=== PATIENT | male | born 1990 | race American Indian/Alaskan Native ===

== ENCOUNTER 2016-07-11 04:46 | Emergency (ER) | payer SELFPAY | END 2016-07-11 04:55 | disposition left against medical advice (07) | LOC: ED 04:46 | DX: F29 Unspecified psychosis not due to a substance or known physiological condition (principal); Z53.21 Procedure and treatment not carried out due to patient leaving prior to being seen by health care provider ==

== ENCOUNTER → 2021-02-14 | Emergency (ER) | payer BC | LOC: ED 17:24 | DX: M79.18 Myalgia, other site (principal); Z53.21 Procedure and treatment not carried out due to patient leaving prior to being seen by health care provider ==

== ENCOUNTER 2021-07-13 19:36 | Inpatient (IN) | payer BC ==
[2021-07-13] MEDS ORDERED: ASPIRIN 325 MG TAB PO ONE (19:52)
[2021-07-13] MEDS ORDERED: dilTIAZem 25 MG/5 ML INJ IV ONE (20:01)
[2021-07-13] MEDS ORDERED: SODIUM CHLORIDE 0.9% 1000 ML 1,000 ML IV ONE (20:01)
[2021-07-13] MEDS: dilTIAZem/D5W 100 MG/100 ML BAG IV SCH (20:23)
--- NOTE | 2021-07-13 20:36 | XRay Report ---
XR chest 1V ap INDICATION / CLINICAL INFORMATION: chest pain. COMPARISON: None available. FINDINGS: SUPPORT DEVICES: None. HEART /PULMONARY VASCULATURE: No significant abnormality. LUNGS / PLEURA: No acute pulmonary or pleural abnormality. No pneumothorax. ADDITIONAL FINDINGS: No significant additional findings. IMPRESSION: 1. No acute findings. Signer Name: Darci Tamayo MD Signed: 07/13/2021 8:31 PM Workstation Name: [id number]
[2021-07-13 20:42] LABS: Basophils % (Auto) 0.3 % (0.0-1.8); Eosinophils # (Auto) 0.1 K/mm3 (0.0-0.4); Eosinophils % (Auto) 0.9 % (0.0-4.3); Hematocrit 47.5 % (35.5-45.6); Hemoglobin 15.8 gm/dl (11.8-15.2); Lymphocytes # (Auto) 2.3 K/mm3 (1.2-5.4); Mean Corpuscular HGB Conc 33 % (32-34); Mean Corpuscular Volume 90 fl (84-94); Monocytes # (Auto) 0.7 K/mm3 (0.0-0.8); Monocytes % (Auto) 7.6 % (0.0-7.3); Platelet Count 230 K/mm3 (140-440); Red Blood Count 5.27 M/mm3 (3.65-5.03); Red Cell Distribution Width 13.7 % (13.2-15.2)
[2021-07-13 21:06] LABS: Alanine Aminotransferase 56 units/L (7-56); Albumin 5.3 g/dL (3.9-5); BUN/Creatinine Ratio 17; Blood Urea Nitrogen 17 mg/dL (9-20); Calcium 10.1 mg/dL (8.4-10.2); Hemolysis Index 11
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
[2021-07-13] MEDS ORDERED: MORPHINE 2 MG/1 ML INJ IV PRN (21:53)
[2021-07-13] MEDS ORDERED: MORPHINE 4 MG/1 ML INJ IV PRN (21:53)
[2021-07-13] MEDS ORDERED: ONDANSETRON 4 MG/2 ML INJ IV PRN (21:53)
[2021-07-13] MEDS ORDERED: ACETAMINOPHEN 325 MG TAB PO PRN (21:53)
[2021-07-13] MEDS ORDERED: MAGNESIUM HYDROXIDE (MOM) ORAL LIQD UDC PO PRN (21:53)
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
[2021-07-13] MEDS ORDERED: LORazepam 2 MG/ML VIAL IV PRN ×2 (22:09)
[2021-07-13] MEDS ORDERED: chlordiazePOXIDE 25 MG CAP PO PRN (22:09)
[2021-07-13 22:46] LABS: Bilirubin,Urine NEG (Negative); Blood,Urine SM (Negative); Color,Urine Straw (Yellow); Protein,Urine <15 mg/dL mg/dL (Negative); Urobilinogen,Urine < 2.0 mg/dL (<2.0)
[2021-07-13 22:53] LABS: Amphetamine Screen,Urine PRESUMPTIVE NEGATIVE; Benzodiazepines Screen,Urine PRESUMPTIVE NEGATIVE; Cannabinoid Screen,Urine PRESUMPTIVE NEGATIVE; Cocaine Screen,Urine PRESUMPTIVE NEGATIVE; Methadone Screen,Urine PRESUMPTIVE NEGATIVE; Opiate Screen,Urine PRESUMPTIVE NEGATIVE
[2021-07-13 23:11] LABS: INR 0.92 (0.87-1.13)
[2021-07-14] MEDS: dilTIAZem/D5W 100 MG/100 ML BAG IV SCH (02:27)
[2021-07-14 02:45] LABS: BUN/Creatinine Ratio 14; Blood Urea Nitrogen 13 mg/dL (9-20); Calcium 9.9 mg/dL (8.4-10.2); Hemolysis Index 16
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
[2021-07-14] MEDS: dilTIAZem 60 MG TAB PO SCH ×3 (09:47→20:24)
[2021-07-14] MEDS: FAMOTIDINE 20 MG TAB PO SCH (09:48)
--- NOTE | 2021-07-14 12:18 | Electrocardiograph Report ---
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
[2021-07-14] MEDS: APIXABAN 5 MG TAB PO SCH ×2 (12:24→21:24)
--- NOTE | 2021-07-14 12:32 | Progress Note ---
<FAYE RUIZ - Last Filed: 07/14/21 16:14> Assessment and Plan Assessment and plan: This is a 30-year-old AA male with known past medical history of asthma admitted for new onset Atrial Fibrilation with RVR Hospital Course to Date 07/14: Still in Afib, HR in the 90 to 100s. Off cardizem gtt overnight due to bradycardia. Cardiology is following. Patient is now on PO Cardizem and plan is to initiated PO Eliquis today. Thorough discussion with patient and his significant other at the bedside, diagnosis and plan of care was discussed. All questions and concerns were voiced at this time. If patient remains stable okay to transfer to Telemetry this afternoon. Assessment and Plan #New Onset Atrial Fibrillation with RVR - Presented c/o SOB, substernal chest discomfort and palpitations - Troponin negative X3 - EKG revealed Atrial Fribrilation with RVR, no significant ST changes noted - s/p Cardizem, held overnight due to bradycardia, HR dropped in the low 50s - Patient remains in Afib this am, HR 90 to 100s - Cardiology consulted, appreciated recommendations - Now on PO Cardizem, plan to initiated Eliquis today - 2D Echo pending - Continue blood pressure monitor per protocol - Maintain SBP less than 160 - CCM also following #Tobacco Dependence #History of Asthma - Current daily cigarette smoker, over a pack a day - Stable on RA, no s/s of respiratory distress noted - Chest x-ray shows no acute abnormality. - Continue inhalers as needed - Smoking Cessation education provided. Patient voiced understanding and agreed to the info provided - Denied any urges at this time, offer nicotine back patch as needed. - CCM also following #Alcohol Abuse - Heavy daily drinker - Patient is calm and cooperative, will continue to monitor for alcohol withdrawal symptoms. - Continue CIWA protocol - Cessation education and alcohol avoidance was also cemetery counselor. Patient voiced understanding and agreed to the info provided - Maintenance of sleep-wake cycle #GI/DVT Prophylaxis - PPI- Pepcid - PO Eliquis initiated - SCDs to bilateral lower extremities while in bed The high probability of a clinically significant, sudden or life threatening deterioration of the [multiple] system(s) required my full and direct attention, intervention and personal management. The aggregate critical care time was [60] minutes. This time is in addition to time spent performing reported procedures but includes the following: [x] Data Review and interpretation [x] Patient assessment and monitoring of vital signs [x] Documentation [x] Medication orders and management Disposition Plan: ICU Total Time Spent with Patient (Minutes): 60 History Interval history: Patient seen and examined at the bedside. Fully AAO, on RA, still c/o of chest palpitation on exertion but resolved once at rest. Cardizem gtt held overnight due to bradycardia, HR dropped in the low 50s. Patient is still in Afib this am, HR in the 90 to 100s. Hospitalist Physical - Constitutional Vitals: Temp Pulse Resp BP Pulse Ox 98 F 87 20 157/63 97 07/14/21 03:22 07/14/21 12:24 07/14/21 12:00 07/14/21 12:24 07/14/21 12:00 General appearance: Present: no acute distress, well-nourished, obese - EENT Eyes: Present: PERRL, EOM intact ENT: hearing intact, clear oral mucosa - Neck Neck: Present: normal ROM - Respiratory Respiratory effort: normal Respiratory: bilateral: CTA - Cardiovascular Rhythm: regular Heart Sounds: Present: S1 & S2 - Extremities Extremities: no ischemia, pulses intact, pulses symmetrical Extremity abnormal: edema - Peripheral Assessment Generalized Edema Type: Non-pitting Edema Degree: 1+ Capillary Refill: < 3 seconds Skin Temperature: Warm Peripheral Pulses: within normal limits - Abdominal General gastrointestinal: soft, non-distended, normal bowel sounds - Integumentary Integumentary: Present: clear, warm, dry - Psychiatric Psychiatric: appropriate mood/affect, cooperative - Neurologic Neurologic: CNII-XII intact, moves all extremities - Allied Health Allied health notes reviewed: nursing HEART Score - HEART Score EKG: Non-specific Age: < 45 Risk factors: No known risk factors Troponin: Troponin T < 0.010 ng/mL (0.00-0.029) 07/14/21 01:50 Troponin: < normal limit - Critical Actions Critical Actions: 0-3 pts:0.9-1.7%risk of adverse cardiac event.Candidate for discharge Results - Labs CBC & Chem 7: 07/14/21 13:06 07/14/21 13:06 Labs: Laboratory Last Values WBC 9.1 K/mm3 (4.5-11.0) 07/13/21 20:21 RBC 5.27 M/mm3 (3.65-5.03) H 07/13/21 20:21 Hgb 15.8 gm/dl (11.8-15.2) H 07/13/21 20:21 Hct 47.5 % (35.5-45.6) H 07/13/21 20:21 MCV 90 fl (84-94) 07/13/21 20:21 MCH 30 pg (28-32) 07/13/21 20:21 MCHC 33 % (32-34) 07/13/21 20:21 RDW 13.7 % (13.2-15.2) 07/13/21 20:21 Plt Count 230 K/mm3 (140-440) 07/13/21 20:21 Lymph % (Auto) 25.0 % (13.4-35.0) 07/13/21 20:21 [place] % (Auto) 7.6 % (0.0-7.3) H 07/13/21 20:21 Eos % (Auto) 0.9 % (0.0-4.3) 07/13/21 20:21 Baso % (Auto) 0.3 % (0.0-1.8) 07/13/21 20:21 Lymph # (Auto) 2.3 K/mm3 (1.2-5.4) 07/13/21 20:21 [place] # (Auto) 0.7 K/mm3 (0.0-0.8) 07/13/21 20:21 Eos # (Auto) 0.1 K/mm3 (0.0-0.4) 07/13/21 20:21 Baso # (Auto) 0.0 K/mm3 (0.0-0.1) 07/13/21 20:21 Seg Neutrophils % 66.2 % (40.0-70.0) 07/13/21 20:21 Seg Neutrophils # 6.0 K/mm3 (1.8-7.7) 07/13/21 20:21 PT 13.4 Sec. (12.2-14.9) 07/13/21 22:33 INR 0.92 (0.87-1.13) 07/13/21 22:33 Sodium 136 mmol/L (137-145) L 07/14/21 02:11 Potassium 3.8 mmol/L (3.6-5.0) 07/14/21 02:11 Chloride 96.2 mmol/L (98-107) L 07/14/21 02:11 Carbon Dioxide 24 mmol/L (22-30) 07/14/21 02:11 Anion Gap 20 mmol/L 07/14/21 02:11 BUN 13 mg/dL (9-20) 07/14/21 02:11 Creatinine 0.9 mg/dL (0.8-1.3) 07/14/21 02:11 Estimated GFR > 60 ml/min 07/14/21 02:11 BUN/Creatinine Ratio 14 % 07/14/21 02:11 Glucose 100 mg/dL (75-100) 07/14/21 02:11 Calcium 9.9 mg/dL (8.4-10.2) 07/14/21 02:11 Total Bilirubin 0.70 mg/dL (0.1-1.2) 07/13/21 20:15 AST 49 units/L (5-40) H 07/13/21 20:15 ALT 56 units/L (7-56) 07/13/21 20:15 Alkaline Phosphatase 75 units/L (35-129) 07/13/21 20:15 Troponin T < 0.010 ng/mL (0.00-0.029) 07/14/21 01:50 Total Protein 8.3 g/dL (6.3-8.2) H 07/13/21 20:15 Albumin 5.3 g/dL (3.9-5) H 07/13/21 20:15 Albumin/Globulin Ratio 1.8 % 07/13/21 20:15 Lipase 27 units/L (13-60) 07/13/21 20:15 TSH 2.860 mlU/mL (0.270-4.200) 07/13/21 21:19 Urine Color Straw (Yellow) 07/13/21 22:18 Urine Turbidity Clear (Clear) 07/13/21 22:18 Urine pH 7.0 (5.0-7.0) 07/13/21 22:18 Ur Specific [place] 1.008 (1.003-1.030) 07/13/21 22:18 Urine Protein <15 mg/dl mg/dL (Negative) 07/13/21 22:18 Urine Glucose (UA) Neg mg/dL (Negative) 07/13/21 22:18 Urine Ketones Neg mg/dL (Negative) 07/13/21 22:18 Urine Blood Sm (Negative) 07/13/21 22:18 Urine Nitrite Neg (Negative) 07/13/21 22:18 Urine Bilirubin Neg (Negative) 07/13/21 22:18 Urine Urobilinogen < 2.0 mg/dL (<2.0) 07/13/21 22:18 Ur Leukocyte Esterase Neg (Negative) 07/13/21 22:18 Urine WBC (Auto) 1.0 /HPF (0.0-6.0) 07/13/21 22:18 Urine RBC (Auto) 2.0 /HPF (0.0-6.0) 07/13/21 22:18 Urine Opiates Screen Presumptive negative 07/13/21 22:18 Urine Methadone Screen Presumptive negative 07/13/21 22:18 Ur Barbiturates Screen Presumptive negative 07/13/21 22:18 Ur Phencyclidine Scrn Presumptive negative 07/13/21 22:18 Ur Amphetamines Screen Presumptive negative 07/13/21 22:18 U Benzodiazepines Scrn Presumptive negative 07/13/21 22:18 Urine Cocaine Screen Presumptive negative 07/13/21 22:18 U Marijuana (THC) Screen Presumptive negative 07/13/21 22:18 Drugs of Abuse Note Disclamer 07/13/21 22:18 Active Medications - Current Medications Current Medications: Generic Name Dose Route Start Last Admin Trade Name Freq PRN Reason Stop Dose Admin Acetaminophen 650 mg 07/13/21 21:53 Acetaminophen 325 Mg Tab PO Q6H PRN Pain MILD(1-3)/Fever >100.5/MAYS Apixaban 5 mg 07/14/21 12:00 07/14/21 12:24 Apixaban 5 Mg Tab PO 5 mg Q12HR BLANCO Administration Protocol Chlordiazepoxide HCl 100 mg 07/13/21 22:09 Chlordiazepoxide 25 Mg Cap PO Q1H PRN IHSAN-Dhaval 16-25 Diltiazem HCl 60 mg 07/14/21 09:00 07/14/21 12:24 Diltiazem 60 Mg Tab PO 60 mg Q6HR BLANCO Administration Famotidine 20 mg 07/14/21 10:00 07/14/21 09:48 Famotidine 20 Mg Tab PO 20 mg QDAY BLANCO Administration Lorazepam 2 mg 07/13/21 22:09 Lorazepam 2 Mg/Ml Vial IV Q1H PRN CIWA-Ar 8-15 Lorazepam 4 mg 07/13/21 22:09 Lorazepam 2 Mg/Ml Vial IV Q15MIN PRN CIWA-Ar >25 Magnesium Hydroxide 30 ml 07/13/21 21:53 Magnesium Hydroxide (Mom) Oral Liqd Udc PO Q4H PRN Constipation Morphine Sulfate 2 mg 07/13/21 21:53 Morphine 2 Mg/1 Ml Inj IV Q4H PRN Chest Pain Ondansetron HCl 4 mg 07/13/21 21:53 Ondansetron 4 Mg/2 Ml Inj IV Q8H PRN Nausea And Vomiting Sodium Chloride 10 ml 07/13/21 22:00 07/14/21 09:48 Sodium Chloride 0.9% 10 Ml Flush Syringe IV 10 ml BID BLANCO Administration Sodium Chloride 10 ml 07/13/21 21:53 Sodium Chloride 0.9% 10 Ml Flush Syringe IV PRN PRN LINE FLUSH <MARJORIE PANIAGUA - Last Filed: 07/15/21 07:10> Assessment and Plan Assessment and plan: Advance care planning Current Visit: Yes Status: Acute Plan to address problem: Disease education data, care plan discussed, diagnoses discussed, prognosis discussed, patient is full code. Patient family knowledges understanding and agreement with care plan, +30 minutes. Hospitalist Physical - Constitutional Vitals: Temp Pulse Resp BP Pulse Ox 97.2 F L 86 18 120/60 97 07/15/21 06:31 07/15/21 06:31 07/15/21 06:31 07/15/21 06:31 07/15/21 06:31 HEART Score - HEART Score Troponin: Troponin T < 0.010 ng/mL (0.00-0.029) 07/14/21 01:50 Results - Labs CBC & Chem 7: 07/14/21 13:06 07/15/21 05:12 Labs: Laboratory Last Values WBC 9.0 K/mm3 (4.5-11.0) 07/14/21 13:06 RBC 5.32 M/mm3 (3.65-5.03) H 07/14/21 13:06 Hgb 16.0 gm/dl (11.8-15.2) H 07/14/21 13:06 Hct 47.5 % (35.5-45.6) H 07/14/21 13:06 MCV 89 fl (84-94) 07/14/21 13:06 MCH 30 pg (28-32) 07/14/21 13:06 MCHC 34 % (32-34) 07/14/21 13:06 RDW 13.8 % (13.2-15.2) 07/14/21 13:06 Plt Count 238 K/mm3 (140-440) 07/14/21 13:06 Lymph % (Auto) 25.0 % (13.4-35.0) 07/13/21 20:21 [place] % (Auto) 7.6 % (0.0-7.3) H 07/13/21 20:21 Eos % (Auto) 0.9 % (0.0-4.3) 07/13/21 20:21 Baso % (Auto) 0.3 % (0.0-1.8) 07/13/21 20:21 Lymph # (Auto) 2.3 K/mm3 (1.2-5.4) 07/13/21 20:21 [place] # (Auto) 0.7 K/mm3 (0.0-0.8) 07/13/21 20:21 Eos # (Auto) 0.1 K/mm3 (0.0-0.4) 07/13/21 20:21 Baso # (Auto) 0.0 K/mm3 (0.0-0.1) 07/13/21 20:21 Seg Neutrophils % 66.2 % (40.0-70.0) 07/13/21 20:21 Seg Neutrophils # 6.0 K/mm3 (1.8-7.7) 07/13/21 20:21 PT 13.9 Sec. (12.2-14.9) 07/14/21 13:06 INR 0.97 (0.87-1.13) 07/14/21 13:06 APTT 25.7 Sec. (24.2-36.6) 07/14/21 13:06 Sodium 137 mmol/L (137-145) 07/15/21 05:12 Potassium 4.3 mmol/L (3.6-5.0) 07/15/21 05:12 Chloride 101.6 mmol/L (98-107) 07/15/21 05:12 Carbon Dioxide 25 mmol/L (22-30) 07/15/21 05:12 Anion Gap 15 mmol/L 07/15/21 05:12 BUN 18 mg/dL (9-20) 07/15/21 05:12 Creatinine 1.1 mg/dL (0.8-1.3) 07/15/21 05:12 Estimated GFR > 60 ml/min 07/15/21 05:12 BUN/Creatinine Ratio 16 % 07/15/21 05:12 Glucose 108 mg/dL (75-100) H 07/15/21 05:12 Calcium 10.0 mg/dL (8.4-10.2) 07/15/21 05:12 Phosphorus 5.50 mg/dL (2.5-4.5) H 07/15/21 05:12 Magnesium 2.40 mg/dL (1.7-2.3) H 07/15/21 05:12 Total Bilirubin 0.70 mg/dL (0.1-1.2) 07/13/21 20:15 AST 49 units/L (5-40) H 07/13/21 20:15 ALT 56 units/L (7-56) 07/13/21 20:15 Alkaline Phosphatase 75 units/L (35-129) 07/13/21 20:15 Troponin T < 0.010 ng/mL (0.00-0.029) 07/14/21 01:50 Total Protein 8.3 g/dL (6.3-8.2) H 07/13/21 20:15 Albumin 5.3 g/dL (3.9-5) H 07/13/21 20:15 Albumin/Globulin Ratio 1.8 % 07/13/21 20:15 Lipase 27 units/L (13-60) 07/13/21 20:15 TSH 2.860 mlU/mL (0.270-4.200) 07/13/21 21:19 Urine Color Straw (Yellow) 07/13/21 22:18 Urine Turbidity Clear (Clear) 07/13/21 22:18 Urine pH 7.0 (5.0-7.0) 07/13/21 22:18 Ur Specific [place] 1.008 (1.003-1.030) 07/13/21 22:18 Urine Protein <15 mg/dl mg/dL (Negative) 07/13/21 22:18 Urine Glucose (UA) Neg mg/dL (Negative) 07/13/21 22:18 Urine Ketones Neg mg/dL (Negative) 07/13/21 22:18 Urine Blood Sm (Negative) 07/13/21 22:18 Urine Nitrite Neg (Negative) 07/13/21 22:18 Urine Bilirubin Neg (Negative) 07/13/21 22:18 Urine Urobilinogen < 2.0 mg/dL (<2.0) 07/13/21 22:18 Ur Leukocyte Esterase Neg (Negative) 07/13/21 22:18 Urine WBC (Auto) 1.0 /HPF (0.0-6.0) 07/13/21 22:18 Urine RBC (Auto) 2.0 /HPF (0.0-6.0) 07/13/21 22:18 Urine Opiates Screen Presumptive negative 07/13/21 22:18 Urine Methadone Screen Presumptive negative 07/13/21 22:18 Ur Barbiturates Screen Presumptive negative 07/13/21 22:18 Ur Phencyclidine Scrn Presumptive negative 07/13/21 22:18 Ur Amphetamines Screen Presumptive negative 07/13/21 22:18 U Benzodiazepines Scrn Presumptive negative 07/13/21 22:18 Urine Cocaine Screen Presumptive negative 07/13/21 22:18 U Marijuana (THC) Screen Presumptive negative 07/13/21 22:18 Drugs of Abuse Note Disclamer 07/13/21 22:18 Active Medications - Current Medications Current Medications: Generic Name Dose Route Start Last Admin Trade Name Freq PRN Reason Stop Dose Admin Acetaminophen 650 mg 07/13/21 21:53 Acetaminophen 325 Mg Tab PO Q6H PRN Pain MILD(1-3)/Fever >100.5/MAYS Apixaban 5 mg 07/14/21 12:00 07/14/21 21:24 Apixaban 5 Mg Tab PO 5 mg Q12HR BLANCO Administration Protocol Chlordiazepoxide HCl 100 mg 07/13/21 22:09 Chlordiazepoxide 25 Mg Cap PO Q1H PRN CIWA-Ar 16-25 Diltiazem HCl 60 mg 07/14/21 09:00 07/15/21 06:33 Diltiazem 60 Mg Tab PO 60 mg Q6HR BLANCO Administration Famotidine 20 mg 07/14/21 10:00 07/14/21 09:48 Famotidine 20 Mg Tab PO 20 mg QDAY BLANCO Administration Lorazepam 2 mg 07/13/21 22:09 Lorazepam 2 Mg/Ml Vial IV Q1H PRN CIWA-Ar 8-15 Lorazepam 4 mg 07/13/21 22:09 Lorazepam 2 Mg/Ml Vial IV Q15MIN PRN CIWA-Ar >25 Magnesium Hydroxide 30 ml 07/13/21 21:53 Magnesium Hydroxide (Mom) Oral Liqd Udc PO Q4H PRN Constipation Morphine Sulfate 2 mg 07/13/21 21:53 Morphine 2 Mg/1 Ml Inj IV Q4H PRN Chest Pain Ondansetron HCl 4 mg 07/13/21 21:53 Ondansetron 4 Mg/2 Ml Inj IV Q8H PRN Nausea And Vomiting Sodium Chloride 10 ml 07/13/21 22:00 07/14/21 21:25 Sodium Chloride 0.9% 10 Ml Flush Syringe IV 10 ml BID BLANCO Administration Sodium Chloride 10 ml 07/13/21 21:53 Sodium Chloride 0.9% 10 Ml Flush Syringe IV PRN PRN LINE FLUSH Nutrition/Malnutrition Assess - Dietary Evaluation Nutrition/Malnutrition Findings: Nutrition Notes Start: 07/14/21 12:44 Freq: Status: Active Protocol: Document 07/14/21 12:44 HALEY (Rec: 07/14/21 12:50 HALEY [id number]) Nutrition Notes Need for Assessment generated from: MD Order,Education Initial or Follow up Brief Note Other Pertinent Diagnosis Atrial Fibrilation w/RVR, Asthma, EtOH Abuse. Current Diet Cardiac Diet (since B 07/14). 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 Weight Status Obese Subjective/Other Information RD consult for nutrition education assessment. No reports available on Pt's PO intake of meals at the time , will assess at F/U. Pt is on Room Air, O2 saturation @ 100%, according to Physical Assessment History notes. Pt still in critical condition , not a candidate for Nutrition Education at the time, will assess feasibility on F/U. Percent of energy/protein needs met: Prescribed Cardiac Diet provides for energy/protein needs (2,230 Kcal/85 g) during LOS. Nutrition Intervention Follow-Up By: 07/21/21 Additional Comments Nutrition education will be provided on F/U, if feasible. Continue monitoring food tolerance, %PO intake of meals , and BM.
[2021-07-14 13:21] LABS: Hematocrit 47.5 % (35.5-45.6); Mean Corpuscular HGB Conc 34 % (32-34); Mean Corpuscular Volume 89 fl (84-94); Platelet Count 238 K/mm3 (140-440); Red Blood Count 5.32 M/mm3 (3.65-5.03); Red Cell Distribution Width 13.8 % (13.2-15.2)
[2021-07-14 13:32] LABS: INR 0.97 (0.87-1.13)
[2021-07-14 13:33] LABS: Partial Thromboplastin Time 25.7 Sec. (24.2-36.6)
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
[2021-07-15] MEDS: dilTIAZem 60 MG TAB PO SCH ×2 (00:19→06:33)
[2021-07-15 05:46] LABS: BUN/Creatinine Ratio 16; Blood Urea Nitrogen 18 mg/dL (9-20); Hemolysis Index 24
[2021-07-15 08:43] VITALS: BP 140/98
--- NOTE | 2021-07-15 09:25 | Progress Note ---
Subjective Date of service: 07/15/21 Objective Vital Signs - 12hr 07/14/21 07/14/21 07/15/21 21:26 22:07 00:14 Temperature 97.2 F L Pulse Rate 96 H 72 77 Pulse Rate [ From Monitor] Respiratory 18 18 Rate Blood Pressure 147/97 Blood Pressure 144/94 [Right] O2 Sat by Pulse 98 99 Oximetry 07/15/21 07/15/21 07/15/21 06:31 08:29 09:20 Temperature 97.2 F L 97.6 F Pulse Rate 86 77 Pulse Rate [ 78 From Monitor] Respiratory 18 18 Rate Blood Pressure 140/98 Blood Pressure 120/60 [Right] O2 Sat by Pulse 97 95 99 Oximetry Constitutional: no acute distress, other (resting in bed, appears anxious) ENT: oropharynx moist, other (large neck circumference) Neck: supple, no lymphadenopathy, no JVD Effort: normal Ascultation: Bilateral: clear, diminished breath sounds Cardiovascular: irregular rhythm, other (S1,S2) Gastrointestinal: normoactive bowel sounds, soft, non-tender Integumentary: normal Extremities: no cyanosis, no edema, pink and warm Neurologic: normal mental status, non-focal exam, pupils equal and round, motor strength normal and Psychiatric: mood appropriate, anxious CBC and BMP: 07/14/21 13:06 07/15/21 05:12 ABG, PT/INR, D-dimer: PT/INR, D-dimer PT 13.9 Sec. (12.2-14.9) 07/14/21 13:06 INR 0.97 (0.87-1.13) 07/14/21 13:06 Abnormal lab findings: Abnormal Labs 07/13/21 07/13/21 07/14/21 20:15 20:21 02:11 RBC 5.27 H Hgb 15.8 H Hct 47.5 H [place] % (Auto) 7.6 H Sodium 136 L Chloride 96.2 L Glucose Phosphorus Magnesium AST 49 H Total Protein 8.3 H Albumin 5.3 H 07/14/21 07/15/21 13:06 05:12 RBC 5.32 H Hgb 16.0 H Hct 47.5 H [place] % (Auto) Sodium Chloride Glucose 108 H Phosphorus 5.50 H Magnesium 2.40 H AST Total Protein Albumin
[2021-07-15] MEDS ORDERED: NICOTINE 7 MG/24 HR PATCH TD SCH (10:00)
[2021-07-15] MEDS: APIXABAN 5 MG TAB PO SCH (10:06)
[2021-07-15] MEDS: FAMOTIDINE 20 MG TAB PO SCH (10:06)
--- NOTE | 2021-07-15 10:51 | Discharge Summary ---
Providers - Providers Date of Admission: 07/13/21 21:53 Date of discharge: 07/14/21 Attending physician: KATHRYN TURNER MD 07/13/21 21:53 Consult to Dietitian/Nutrition [CONS] Routine Physician Instructions: Reason For Exam: Reason for Consult: Diet education Consult to Physician [CONS] Routine Comment: Consulting Provider: AMMY BILLINGSLEY Physician Instructions: Reason For Exam: AFIB WITH RVR 07/13/21 21:58 Consult to Physician [CONS] Routine Comment: Consulting Provider: DARRELL VALENTIN Physician Instructions: Reason For Exam: AFIB WITH RVR ON CARDIZEM DRIP Primary care physician: [employer] Hospitalization Condition: Fair Disposition: 30 STILL A PATIENT Exam - Constitutional Vitals: Temp Pulse Resp BP Pulse Ox 97.6 F 78 18 140/98 99 07/15/21 08:29 07/15/21 09:20 07/15/21 08:29 07/15/21 08:29 07/15/21 09:20 Plan Care Plan Goals: Please start taking all medications as they are prescribed. Make sure to schedule follow-up appointment with your primary care provider. Also make sure to follow-up with Cardiology for atrial fibrillation management. We recommend that you cut back and eventually quit smoking and alcohol use. If you experience any bleeding while taking the blood thinner, please let your primary care provider know. Follow up with: ARLEEN VILLEGAS MD [Primary Care Provider] - 3-5 Days Prescriptions: dilTIAZem HCl [Diltiazem 24Hr ER (Cd)] 240 mg PO QDAY 30 Days #30 tab Apixaban [Eliquis] 5 mg PO Q12HR 30 Days #60 tablet
--- NOTE | 2021-07-15 11:55 | Progress Note ---
Assessment and Plan Patient is a 30-year-old male with a past medical history of asthma who presented to the ED with a complaint of palpitations, shortness of breath, lightheadedness, and chest tightness which started day prior to admission A. fib with RVR Hypertension EtOH abuse Tobacco use Echo 07/13/2021-EF 50 to 55%. Left ventricular diastolic function is indeterminate. Right ventricular systolic function is normal. No pericardial effusion Plan: Patient converted to sinus rhythm 67 Stop Cardizem 60 p.o. every 6 hours and convert to Cardizem CD 240 mg p.o. daily Echo results noted above Continue Eliquis for anticoagulation Discussed importance of smoking cessation with patient who verbalized under standing and acknowledgment Discussed importance of anticoagulation with patient and risks and benefits of anticoagulation. Patient verbalized understanding and acknowledgment Cardiac status otherwise stable for discharge Patient should follow-up with Dr. Mccrary, [facility] special effects specialist, 08/20/2021 at 1:15 PM in our [place] location. Phone #[phone] Patient seen in conjunction with Dr. Mccrary who agrees with this plan of care - Patient Problems (1) Atrial fibrillation with RVR Current Visit: Yes Status: Acute (2) History of asthma Current Visit: Yes Status: Acute (3) Tobacco dependence Current Visit: Yes Status: Acute (4) Alcohol abuse Current Visit: Yes Status: Acute Subjective Date of service: 07/15/21 Principal diagnosis: A. fib with RVR Interval history: Patient transferred to telemetry floor. Patient resting in bed in no acute distress and reports feeling much better Patient converted to sinus rhythm. Currently sinus rate trending in the 60s to 70s Objective Vital Signs Temp Pulse Pulse Resp BP BP Pulse Ox 07/15/21 09:20 78 99 07/15/21 08:29 97.6 F 77 18 140/98 95 07/15/21 06:31 97.2 F L 86 18 120/60 97 07/15/21 00:14 97.2 F L 77 18 144/94 99 07/14/21 22:07 72 07/14/21 21:26 96 H 18 147/97 98 07/14/21 21:01 72 15 147/97 99 07/14/21 20:24 79 137/95 07/14/21 20:00 67 78 19 137/95 99 07/14/21 19:45 99.2 F 07/14/21 19:00 63 22 129/86 99 07/14/21 18:00 72 17 135/81 98 07/14/21 17:00 79 16 134/83 97 07/14/21 16:01 73 17 111/78 98 07/14/21 16:00 97.3 F L 07/14/21 15:59 70 70 19 97 07/14/21 15:01 91 H 11 L 127/83 99 07/14/21 14:00 103 H 21 148/84 100 07/14/21 13:00 88 18 148/84 100 07/14/21 12:24 87 157/63 07/14/21 12:19 106 H 106 H 17 98 07/14/21 12:00 97.8 F 129 H 20 168/100 97 - Physical Examination General: No Apparent Distress HEENT: Positive: PERRL, Normocephaly Neck: Positive: trachea midline Cardiac: Positive: Reg Rate and Rhythm Lungs: Positive: Normal Breath Sounds Neuro: Positive: Grossly Intact Abdomen: Positive: Soft, Active Bowel Sounds Skin: Negative: Rash, Suspicious Lesions, Ulceration Extremities: Present: upper extr. pulses. Absent: edema - Labs and Meds Coagulation 07/14/21 Range/Units 13:06 PT 13.9 (12.2-14.9) Sec. INR 0.97 (0.87-1.13) APTT 25.7 (24.2-36.6) Sec. CBC 07/14/21 Range/Units 13:06 WBC 9.0 (4.5-11.0) K/mm3 RBC 5.32 H (3.65-5.03) M/mm3 Hgb 16.0 H (11.8-15.2) gm/dl Hct 47.5 H (35.5-45.6) % Plt Count 238 (140-440) K/mm3 Comprehensive Metabolic Panel 07/14/21 07/15/21 Range/Units 13:06 05:12 Sodium 137 (137-145) mmol/L Potassium 4.3 (3.6-5.0) mmol/L Chloride 101.6 (98-107) mmol/L Carbon Dioxide 25 (22-30) mmol/L BUN 18 (9-20) mg/dL Creatinine 0.9 1.1 (0.8-1.3) mg/dL Glucose 108 H (75-100) mg/dL Calcium 10.0 (8.4-10.2) mg/dL - Imaging and Cardiology Echo: report reviewed - Telemetry EKG Rhythm: Sinus Rhythm - EKG Sinus rhythms and dysrhythmias: sinus rhythm
[2021-07-16] MEDS ORDERED: dilTIAZem CD 240 MG CAP PO SCH (10:00)
== END 2021-07-15 14:30 | disposition home or self-care (01) | DRG 310 ==
LOC: ED 19:36 → CC1 21:53 → 4A 07-14 21:41
PROVIDERS: ADMIT Internal Medicine Geriatric Medicine; ATTEND Student in an Organized Health Care Education/Training Program
DX: I48.91 Unspecified atrial fibrillation (principal); J45.909 Unspecified asthma, uncomplicated; I10 Essential (primary) hypertension; F10.10 Alcohol abuse, uncomplicated; F17.200 Nicotine dependence, unspecified, uncomplicated
CPT/HCPCS: 36415; 71045; 80048; 80053; 80307; 81001; 82565; 83690; 83735; 84100; 84443; 84484; 85025; 85027; 85610; 85730; 93005; 93306; G0378; J3490; C8929; J7030

== ENCOUNTER 2021-09-25 23:53 | Emergency (ER) | payer BC ==
[2021-09-26 00:01] VITALS: BP 154/83
--- NOTE | 2021-09-26 00:42 | XRay Report ---
XR chest routine 2V INDICATION / CLINICAL INFORMATION: CHEST PAIN. COMPARISON: 07/13/2021 FINDINGS: SUPPORT DEVICES: None. HEART /PULMONARY VASCULATURE: No significant abnormality. LUNGS / PLEURA: No significant pulmonary or pleural abnormality. No pneumothorax. ADDITIONAL FINDINGS: No significant additional findings. IMPRESSION: 1. No acute findings. Signer Name: Darci Tamayo MD Signed: 09/26/2021 12:37 AM Workstation Name: [id number]
[2021-09-26 01:04] LABS: Basophils # (Auto) 0.1 K/mm3 (0.0-0.1); Basophils % (Auto) 0.7 % (0.0-1.8); Eosinophils # (Auto) 0.1 K/mm3 (0.0-0.4); Eosinophils % (Auto) 1.3 % (0.0-4.3); Hematocrit 44.2 % (35.5-45.6); Hemoglobin 15.5 gm/dl (11.8-15.2); Lymphocytes # (Auto) 2.6 K/mm3 (1.2-5.4); Lymphocytes % (Auto) 26.1 % (13.4-35.0); Mean Corpuscular HGB Conc 35 % (32-34); Mean Corpuscular Volume 88 fl (84-94); Monocytes # (Auto) 0.7 K/mm3 (0.0-0.8); Monocytes % (Auto) 7.1 % (0.0-7.3); Platelet Count 293 K/mm3 (140-440); Red Blood Count 5.03 M/mm3 (3.65-5.03); Red Cell Distribution Width 13.2 % (13.2-15.2)
[2021-09-26 01:24] LABS: Albumin 4.7 g/dL (3.9-5); BUN/Creatinine Ratio 13; Blood Urea Nitrogen 15 mg/dL (9-20); Calcium 9.9 mg/dL (8.4-10.2); Hemolysis Index 19
[2021-09-26 01:44] LABS: Alanine Aminotransferase < 5 units/L (7-56)
--- NOTE | 2021-09-27 10:17 | Electrocardiograph Report ---
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
== END 2021-09-26 01:00 | disposition left against medical advice (07) ==
LOC: ED 23:53
DX: R06.02 Shortness of breath (principal); Z53.21 Procedure and treatment not carried out due to patient leaving prior to being seen by health care provider
CPT/HCPCS: 36415; 71046; 80053; 84484; 85025; 93005

== ENCOUNTER 2021-11-19 07:45 | Day surgery (SDC) | payer BC ==
--- NOTE | 2021-11-18 14:55 | Short Stay Summary ---
Short Stay Documentation Date of service: 11/18/21 Narrative H&P: Patient is a 32-year-old male with a past medical history of A. fib, hypertension, obesity, tobacco use, and suspected MOHIT who presents for cardiac cath due to recurrent chest pain despite normal echo and stress test. - History Past Medical History: atrial fib, hypertension Past Surgical History: No surgical history Social history: , smoking - Allergies and Medications Current Medications: Allergies No Known Allergies Allergy (Verified 07/13/21 19:52) Home Medications Medication Instructions Recorded Confirmed Last Taken Type Apixaban [Eliquis] 5 mg PO Q12HR 30 Days #60 tablet 07/15/21 Unknown Rx dilTIAZem HCl [Diltiazem 24Hr ER 240 mg PO QDAY 30 Days #30 tab 07/15/21 Unknown Rx (Cd)] - Physical exam General appearance: no acute distress Integumentary: no rash, no growths, no abnormal pigmentation HEENT: PERRLA Heart: Regular rate, Normal S1, Normal S2 Gastrointestinal: normal Extremities: no ischemia, pulses intact Neurological: Normal speech - Brief post op/procedure progress note Date of procedure: 11/19/21 Pre-op diagnosis: Chest pain Post-op diagnosis: other (Noncardiac chest pain) Anesthesia: local Estimated blood loss: minimal - Hospital course Hospital course: Patient presented for cardiac cath this a.m. Patient found to have nonsignificant disease. Patient tolerated procedure well with no complications. Patient to be discharged home and follow-up in the office as an outpatient - Disposition Condition at discharge: Good Disposition: 01 HOME / SELF CARE / HOMELESS - Discharge Diagnoses (1) Atrial fibrillation with RVR Status: Acute (2) History of asthma Status: Acute (3) Tobacco dependence Status: Acute Short Stay Discharge Plan Diet: low fat, low cholesterol, low salt Wound: keep clean and dry, per your surgeon's advice Follow up with: ARLEEN VILLEGAS MD [Primary Care Provider] - 7 Days HENRY BURCIAGA MD [Staff Physician] - 7 Days
[2021-11-19 08:40] LABS: Basophils % (Auto) 0.7 % (0.0-1.8); Eosinophils # (Auto) 0.1 K/mm3 (0.0-0.4); Hematocrit 44.4 % (35.5-45.6); Hemoglobin 15.1 gm/dl (11.8-15.2); Lymphocytes # (Auto) 2.3 K/mm3 (1.2-5.4); Lymphocytes % (Auto) 32.1 % (13.4-35.0); Mean Corpuscular HGB Conc 34 % (32-34); Mean Corpuscular Volume 89 fl (84-94); Monocytes # (Auto) 0.5 K/mm3 (0.0-0.8); Monocytes % (Auto) 7.2 % (0.0-7.3); Platelet Count 239 K/mm3 (140-440); Red Blood Count 5.01 M/mm3 (3.65-5.03); Red Cell Distribution Width 13.9 % (13.2-15.2)
[2021-11-19] MEDS ORDERED: FAMOTIDINE 20 MG/2 ML INJ IV ONE (08:46)
[2021-11-19] MEDS ORDERED: diphenhydrAMINE 50 MG/ML VIAL ONE (08:46)
[2021-11-19] MEDS ORDERED: methylPREDNISolone Sod Succinate 125 MG/2 ML INJ ONE (08:46)
[2021-11-19] MEDS ORDERED: HEPARIN/NS 5000 UNIT/500ML 1,000 ML IR ONE (08:48)
[2021-11-19 08:51] LABS: INR 0.83 (0.87-1.13)
[2021-11-19 08:52] LABS: Partial Thromboplastin Time 24.7 Sec. (24.2-36.6)
[2021-11-19 08:53] LABS: BUN/Creatinine Ratio 17; Blood Urea Nitrogen 15 mg/dL (9-20); Calcium 9.5 mg/dL (8.4-10.2); Hemolysis Index 7
[2021-11-19] MEDS ORDERED: SODIUM CHLORIDE 0.9% 500 ML 500 ML IV SCH (09:00)
[2021-11-19] MEDS: fentaNYL 100 MCG/2 ML INJ ONE ×2 (09:01→09:39)
[2021-11-19] MEDS: MIDAZOLAM 2 MG/2 ML INJ ONE ×2 (09:02→09:39)
[2021-11-19] MEDS: HEPARIN 10,000 UNITS/10 ML VIAL ONE ×2 (09:03→09:44)
[2021-11-19] MEDS: LIDOCAINE (2%) 20 MG/1 ML VIAL 20 ML MDV INFILTRATI ONE ×2 (09:03→09:43)
[2021-11-19] MEDS: VERAPAMIL 5 MG/2 ML INJ ONE ×2 (09:03→09:44)
[2021-11-19] MEDS: NITROGLYCERIN SYRINGE 3 ML ONE ×2 (09:04→09:44)
[2021-11-19] MEDS ORDERED: diphenhydrAMINE 50 MG/ML VIAL IV NR (10:00)
[2021-11-19] MEDS ORDERED: ASPIRIN EC 325 MG TAB PO NR (10:00)
[2021-11-19] MEDS ORDERED: FAMOTIDINE 20 MG/2 ML INJ IV NR (10:00)
[2021-11-19] MEDS ORDERED: methylPREDNISolone Sod Suc 500 MG in SODIUM CHLORIDE 0.9% 100 ML IV ONE (10:15)
--- NOTE | 2021-11-19 10:34 | Cardiac Catherization Report ---
DATE OF PROCEDURE: 11/19/2021 PROCEDURE: Cardiac catheterization. REFERRING PHYSICIAN: Saul Mccrary MD INDICATIONS: The patient is a pleasant 31-year-old -Thai gentleman, who has had recurrent chest pain despite optimal medical therapy and a negative stress test, referred for left heart catheterization. Risks, benefits, potential alternatives explained at length prior to informed consent. He is premedicated for a seafood allergy. Risks, benefits and alternatives discussed at length prior to obtaining informed consent. PROCEDURE IN DETAIL: The patient was brought to geophysical laboratory chief in a postabsorptive state, prepped and draped in sterile fashion. Federico's test in right hand was normal. A 2 mL of 2% lidocaine used to anesthetize the right wrist. A standard 6-Luxembourgish hydrophilic sheath used to cannulate the right radial artery via modified Seldinger technique. All exchanges performed to exchange a J-tip guidewire. JL3.5 catheter used to engage the left main. No dampening or ventricularization. Cineangiography performed in all projections. JR4 catheter used to cross the aortic valve under fluoroscopic guidance. Left ventriculography performed in 30-degree KEY and 30-degree ELTON projections via hand injections, catheter flushed. Manual pullback performed with continuous pressure monitoring. Catheter used to engage right coronary. No dampening or ventricularization. Cineangiography performed in multiple projections. Next, catheter removed from the body of wire, sheath removed. Given recurrent chest pain and hypertension, normal coronaries, we proceeded with a root aortogram. Root aortography was performed with a pigtail catheter in the ELTON projection with power injector. Next, catheter removed from the body of wire, sheath removed. Manual pressure used to achieve hemostasis. No immediate complications. I directly supervised the administration of moderate sedation with fentanyl and Versed from 9:30 a.m. to 9:57 a.m. No immediate complications. DATA: The patient remained in normal sinus rhythm throughout the procedure. CORONARY ANATOMY: A strongly right dominant system. Right coronary is a large vessel, courses AV groove, no significant disease. Left main without significant disease. The left main trifurcates into LAD, ramus intermedius and left circumflex. Left circumflex and ramus intermedius without significant disease. LAD is a moderate-sized vessel, courses anterior intergroove, wraps around the apex, no significant disease. Left ventriculography reveals normal systolic performance, estimated ejection fraction 55-60%. No evidence of aortic stenosis. Root aortography reveals normal contour. No evidence of dissection, penetrating aortic ulcer or aortic insufficiency. Normal great vessel anatomy. CONCLUSIONS: * No angiographic evidence of significant epicardial coronary artery disease in this right dominant system. * Normal left ventricular systolic performance, estimated ejection fraction of 55-60%. * No evidence of aortic stenosis. * Normal LVEDP. * Normal root aortography without evidence of dissection, penetrating aortic ulcer or aortic insufficiency. The patient is clinically stable. No evidence of contrast allergic reaction. The patient is doing well. Stable cardiac status. Standard radial care. Obviously, his chest pain is noncardiac, likely musculoskeletal or GI. Follow up with me in the office. Stable cardiac status. TID: [id number] RECEIPT: [id number] ALICE/SHOBHA
[2021-11-19] MEDS ORDERED: traMADol 50 MG TAB PO PRN (11:00)
[2021-11-19] MEDS ORDERED: HYDROcodone/ACETAMINOPHEN 5-325 MG TAB PO PRN (11:00)
--- NOTE | 2021-11-19 13:31 | Electrocardiograph Report ---
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
[2021-11-19 13:50] VITALS: BP 148/100
== END 2021-11-19 07:46 | disposition home or self-care (01) ==
LOC: CATHLABREC 07:45
PROVIDERS: ATTEND Internal Medicine
DX: R07.89 Other chest pain (principal); F17.210 Nicotine dependence, cigarettes, uncomplicated; I48.91 Unspecified atrial fibrillation; F10.10 Alcohol abuse, uncomplicated; J45.909 Unspecified asthma, uncomplicated; Z87.09 Personal history of other diseases of the respiratory system; Z79.899 Other long term (current) drug therapy; Z98.890 Other specified postprocedural states
CPT/HCPCS: 36415; 80048; 85025; 85610; 85730; 93005; 93458; 93567; J1815; J3490; C1894; J1200; J1644; J2250; J2930; J3010; J7040; Q9967